=== PATIENT | male | born 1955 | race Caucasian/White ===

== ENCOUNTER 2016-06-22 14:43 | Observation (INO) ==
[2016-06-22] MEDS ORDERED: Ipratropium/Albuterol Neb 3 ML IH ONE (14:57)
[2016-06-22 15:13] LABS: Basophils % 0.3 %; Eosinophils % 0.5 %; Hematocrit 26.4 % (37.5-50.1); Hemoglobin 7.8 g/dL (12.9-16.9); Immature Platelets 6.1 % (1.1-6.1); Lymphocytes # 0.8 K/mcL (0.6-4.6); Lymphocytes % 13.7 %; Mean Corpuscular HGB Conc 29.5 g/dL (31.6-35.5); Mean Corpuscular Hemoglobin 23.1 pg (28.0-33.3); Mean Corpuscular Volume 78.1 fL (83.0-100.0); Mean Platelet Volume 10.9 fL (9.4-12.4); Monocytes # 1.3 K/mcL (0.0-1.3); Monocytes % 21.8 %; Neutrophils # 3.8 K/mcL (1.6-8.9); Platelet Count 157 K/mcL (140-400); Red Blood Count 3.38 M/mcL (4.19-5.50); Red Cell Distribution Width 16.9 % (11.5-14.5); Segmented Neutrophils % 62.7 %
[2016-06-22 15:23] LABS: Potassium 4.4 mEq/L (3.5-4.5)
[2016-06-22 15:24] LABS: Calcium 9.8 mg/dL (8.6-10.8)
[2016-06-22 15:31] LABS: Platelet Estimate Normal (Normal)
[2016-06-22 15:32] LABS: Anisocytosis 1+ (Not Present); Hypochromasia Present (Not Present); Microcytosis Present (Not Present); Poikilocytosis 1+ (Not Present)
[2016-06-22 15:33] LABS: Polychromasia 1+ (Not Present)
--- NOTE | 2016-06-22 15:39 | Emergency Department Note ---
Disposition Clinical Impression: Short of breath on exertion, Acute kidney injury, Sinus tachycardia Anemia Qualifiers: Anemia type: iron deficiency Iron deficiency anemia type: inadequate dietary iron intake Qualified Code(s): D50.8 - Other iron deficiency anemias Disposition: Admitted As Inpatient Condition: Serious Time of Disposition: 20:00 SOB HPI - General Chief Complaint: ED Shortness of Breath/Dyspnea Stated Complaint: ОЛЕГ Source: patient Limitations: no limitations Nursing Notes Reviewed: Yes Vital Signs Reviewed: Yes - History of Present Illness Patient 61-year-old male who complains of shortness of breath 1 month. When asked what changed today patient states that has gotten worse over the past 3 days. Patient states his shortness of breath worsens with activity. 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 Patient also states that he has a cough that worsens at night when he lays down. Patient reports being around sick people with pneumonia and other upper respiratory infections. Patient denies any cardiac history, he admits to history of hypertension and anemia. Patient states he sees Dr. Jones for his anemia. Patient states that they have not found a cause for his anemia. Patient reports no active blood loss through GI. Patient states he saw his primary care physician today stated that she was worried for possible PE during her exam of him. She recommended him come to the ED for chest x-ray per the patient. - Related Data Home Medications Medication Instructions Recorded Confirmed Lisinopril [Zestril] 10 mg PO DAILY 09/02/15 06/22/16 Paroxetine HCl 20 mg PO DAILY 09/02/15 06/22/16 Allergies Allergy/AdvReac Type Severity Reaction Status Date / Time No Known Allergies Allergy Verified 09/02/15 08:55 Review of Systems: Patient admits to cough, lightheadedness, nausea, shortness of breath, dyspnea on exertion and headache as well as fatigue. Patient denies fever, chills, facial pain or sinus pressure, throat pain, chest pain, heart palpitations, abdominal pain, diarrhea, numbness and tingling in extremities. All systems ED: reviewed and negative except as stated. Past Medical History - Past Medical History Attestation: Yes The following information was validated with the patient. Medical history: Reports: hypertension Psychiatric history: Reports: depression - Social History Smoking Status: Never smoker Smokeless Tobacco Status: No Alcohol use: Reports: occasionally Drug use: Reports: none Physical Exam Vital Signs Temperature 97.9 F 06/22/16 14:45 Pulse Rate 119 06/22/16 14:45 Respiratory Rate 22 06/22/16 14:45 Blood Pressure 105/66 06/22/16 14:45 O2 Sat by Pulse Oximetry 98 06/22/16 14:45 Temperature 97.9 F 06/22/16 14:45 Pulse Rate 102 06/22/16 15:35 Respiratory Rate 16 06/22/16 15:35 Blood Pressure 102/76 06/22/16 15:35 O2 Sat by Pulse Oximetry 98 06/22/16 15:35 Oxygen Delivery Oxygen Delivery Room Air -General Appearance: Patient is a 61-year-old male who is alert and oriented 3 and in no acute distress. Patient appears to have to catch his breath shortly after 5 or 6 words with a slight gasp for air. - Head Head exam: atraumatic, normocephalic, normal inspection - Eye Eye exam: Present: normal appearance, PERRL, EOMI, negative for scleral icterus negative for conjunctival pallor - ENT ENT exam: normal exam, normal oropharynx, mucous membranes moist - Neck Neck exam: Present: normal inspection, full ROM, trachea midline, negative JVD - Chest Chest inspection: Present: Patient has bilateral equal rise and fall of chest wall. Non-tender to palpation. - Respiratory Respiratory exam: Clear to auscultation bilaterally without wheezes rales or rhonchi Cardiovascular Cardiovascular exam: Present: Irregular rate, EKG shows sinus tachycardia, normal rhythm, normal heart sounds, without murmurs rubs or gallops. - Abdominal Exam Abdominal exam: Present: soft, nondistended, Non-Tender light and deep palpation in all quadrants. Bowel sounds normoactive throughout all 4 quadrants. Negative for hyper or hyperresonance. - Extremities Exam Extremities exam: Present: normal inspection, full ROM, patient has negative calf tenderness, and pedal pulses equal bilateral patient has normal refill at 2 seconds - Back Exam Back exam: Present: normal inspection, full ROM. negative flank pain negative lower back tenderness - Psychiatric Psychiatric exam: Present: normal affect, normal mood - Skin Skin exam: Present: warm, dry, intact, normal color - General Limitations: no limitations General appearance: alert, in no apparent distress Course Course Narrative: Patient was seen and examined. CBC, BMP, chest x-ray, troponin ordered d-dimer ordered. - Reevaluation(s) Reevaluation #1: Patient's labs returned showing anemia at 7.8, patient was informed of this, as well as elevated d-dimer. Patient's requires VQ scan. Patient agrees and understands treatment plan. Also received DuoNeb and says that it did not help his shortness of breath. he is still tachycardic at 102 bpm Time: 17:00 Reevaluation #2: Patient still awaiting retaken a V/Q scan Time: 17:45 Reevaluation #3: Patient has gotten VQ scan accomplished and currently waiting results Time: 18:30 - Consultations Consultation #1: Dr. Sagastume has accepted for admission Time: 19:53 Vital Signs Temperature 97.9 F 06/22/16 14:45 Pulse Rate 119 06/22/16 14:45 Respiratory Rate 22 06/22/16 14:45 Blood Pressure 105/66 06/22/16 14:45 O2 Sat by Pulse Oximetry 98 06/22/16 14:45 Temperature 98.8 F 06/22/16 22:17 Pulse Rate 84 06/22/16 22:17 Respiratory Rate 17 06/22/16 22:17 Blood Pressure 120/74 06/22/16 22:17 O2 Sat by Pulse Oximetry 98 06/22/16 22:06 Oxygen Delivery Oxygen Delivery Room Air Shortness of Breath/Dyspnea - MDM Narrative Medical decision making narrative: Patient condition concerning for possible PE congestive heart failure, cardiomyopathy secondary undiagnosed etiology, pneumonia, anemia. D-dimer was ordered and was elevated at 694 prompting to proceed with inflammation perfusion scan which was negative for PE. Labs show a microcytic anemia hemoglobin 7.8, as well as hyponatremia with a potassium level of 135, patient is a BUN of 38, and a creatinine level of 2.37 which is positive for acute kidney injury as well. Patient received 2 L of fluid which helped the patient' s tachycardia and volume status. Patient is currently has a pulse rate of 92. Discussed the patient possibility of admission for transfusion, investigation into acute kidney injury as well. Spoke to Dr. Sagastume who asked to begin treatment for anemia here in the ED. 2 units PRBCs and been ordered as well as a UA. Patient has been accepted for admission. Of note patient states that he usually drinks 5 beers a night. Patient states he recently cut back to 2 beers a night since 3 nights ago. Patient does state that he has been drinking all his life. Patient states that he does not feel that he needs to drink all the time but it helps calm him down at night to sleep. He says like states that prior to cutting back he did increased his amount of drinking but could not quantify. - Medical Records Medical records reviewed: Yes I reviewed the patient's medical records. - Lab Data Lab results reviewed: Yes I reviewed the patient's lab results. Lab results narrative: Short CBC 06/22/16 Range/Units 15:02 WBC 6.1 (4.3-11.1) K/mcL Hgb 7.8 L (12.9-16.9) g/dL Hct 26.4 L (37.5-50.1) % Plt Count 157 (140-400) K/mcL Neutrophils # 3.8 (1.6-8.9) K/mcL BMP 06/22/16 Range/Units 15:02 Sodium 135 L (136-145) mEq/L Potassium 4.4 (3.5-4.5) mEq/L Chloride 102 (98-109) mEq/L Carbon Dioxide 20 (19-29) mEq/L BUN 38 H (8-26) mg/dL Creatinine 2.37 H (0.72-1.25) mg/dL Glucose 116 H (70-99) mg/dL Calcium 9.8 (8.6-10.8) mg/dL Cardiac Enzymes 06/22/16 06/22/16 Range/Units 22:20 15:02 Troponin I 0.01 0.02 (0-0.03) ng/mL Result diagrams: 06/22/16 15:02 06/22/16 15:02 Lab Results 06/22/16 06/22/16 06/22/16 Range/Units 15:02 15:02 15:02 WBC 6.1 (4.3-11.1) K/mcL RBC 3.38 L (4.19-5.50) M/mcL Hgb 7.8 L (12.9-16.9) g/dL Hct 26.4 L (37.5-50.1) % MCV 78.1 L (83.0-100.0) fL MCH 23.1 L (28.0-33.3) pg MCHC 29.5 L (31.6-35.5) g/dL RDW 16.9 H (11.5-14.5) % Plt Count 157 (140-400) K/mcL MPV 10.9 (9.4-12.4) fL Immature Gran % 1.0 (0-4) % Seg Neutrophils % 62.7 % Lymphocytes % 13.7 % Monocytes % 21.8 % Eosinophils % 0.5 % Basophils % 0.3 % Neutrophils # 3.8 (1.6-8.9) K/mcL Lymphocytes # 0.8 (0.6-4.6) K/mcL Monocytes # 1.3 (0.0-1.3) K/mcL Eosinophils # 0.0 (0.0-0.6) K/mcL Basophils # 0.0 (0.0-0.2) K/mcL Platelet Estimate Normal (Normal) Immature Plt Fraction 6.1 (1.1-6.1) % Polychromasia 1+ A (Not Present) Hypochromasia Present A (Not Present) Poikilocytosis 1+ A (Not Present) Anisocytosis 1+ A (Not Present) Microcytosis Present A (Not Present) D-Dimer 694 H (0-500) ng/mLFEU Sodium 135 L (136-145) mEq/L Potassium 4.4 (3.5-4.5) mEq/L Chloride 102 (98-109) mEq/L Carbon Dioxide 20 (19-29) mEq/L BUN 38 H (8-26) mg/dL Creatinine 2.37 H (0.72-1.25) mg/dL Est GFR ( Amer) 34 L (> 60) Est GFR (Non-Af Amer) 28 L (> 60) BUN/Creatinine Ratio 16 (6-26) Glucose 116 H (70-99) mg/dL Calculated Osmolality 290 (280-300) Calcium 9.8 (8.6-10.8) mg/dL Iron 21 L (65-175) mcg/dL % Saturation 4 L (20-55) % Transferrin 363 (174-364) mg/dL Ferritin 131 (22-275) ng/ml Troponin I (0-0.03) ng/mL Vitamin B12 (213-816) pg/mL Folate (7.0-31.4) ng/mL Blood Type Antibody Screen Crossmatch 06/22/16 06/22/16 06/22/16 Range/Units 15:02 15:02 17:37 WBC (4.3-11.1) K/mcL RBC (4.19-5.50) M/mcL Hgb (12.9-16.9) g/dL Hct (37.5-50.1) % MCV (83.0-100.0) fL MCH (28.0-33.3) pg MCHC (31.6-35.5) g/dL RDW (11.5-14.5) % Plt Count (140-400) K/mcL MPV (9.4-12.4) fL Immature Gran % (0-4) % Seg Neutrophils % % Lymphocytes % % Monocytes % % Eosinophils % % Basophils % % Neutrophils # (1.6-8.9) K/mcL Lymphocytes # (0.6-4.6) K/mcL Monocytes # (0.0-1.3) K/mcL Eosinophils # (0.0-0.6) K/mcL Basophils # (0.0-0.2) K/mcL Platelet Estimate (Normal) Immature Plt Fraction (1.1-6.1) % Polychromasia (Not Present) Hypochromasia (Not Present) Poikilocytosis (Not Present) Anisocytosis (Not Present) Microcytosis (Not Present) D-Dimer (0-500) ng/mLFEU Sodium (136-145) mEq/L Potassium (3.5-4.5) mEq/L Chloride (98-109) mEq/L Carbon Dioxide (19-29) mEq/L BUN (8-26) mg/dL Creatinine (0.72-1.25) mg/dL Est GFR ( Amer) (> 60) Est GFR (Non-Af Amer) (> 60) BUN/Creatinine Ratio (6-26) Glucose (70-99) mg/dL Calculated Osmolality (280-300) Calcium (8.6-10.8) mg/dL Iron (65-175) mcg/dL % Saturation (20-55) % Transferrin (174-364) mg/dL Ferritin (22-275) ng/ml Troponin I 0.02 (0-0.03) ng/mL Vitamin B12 1007 H (213-816) pg/mL Folate 14.3 (7.0-31.4) ng/mL Blood Type A POSITIVE Antibody Screen NEGATIVE Crossmatch See Detail - Radiology Data Radiology results reviewed: Yes I reviewed the patient's radiology results. Chest X-Ray 06/22/16 14:54 IMPRESSION: No acute process. D/ / Hua Wiggins MD / Hua Wiggins MD Interpreting Provider: Hua Wiggins MD Pulmonary Perfusion Imaging 06/22/16 17:00 IMPRESSION: Normal study. No pulmonary embolus is suspected. D/ / Leonard Ferro MD / Leonard Ferro MD Interpreting Provider: Leonard Ferro MD - EKG Data EKG attestation: Yes I reviewed and interpreted this EKG. EKG results narrative: EKG taken for June 2016 at 1503 hrs. shows a sinus tachycardia no acute ST elevations or depressions in leads. Attestation Statement - Attestation Attestation: I examined this patient and my medical decision-making was reviewed with the REAL ESTATE FIRM MANAGER/PA/Advanced Practice Nurse/Resident Physician. I agree with the documented findings, disposition and treatment plan as described except to the extent set forth below. Patient to the emergency Department chief complaint shortness of breath. Is not progressing over a few weeks. He describes it as dyspnea on exertion. He thought he had a flu that he cannot get rid of. He has had a dry cough. No fever. He went to the urgent care today to get an antibiotic and states they were concerned for blood clots and sent him here. Denies any leg or pain swelling. He denies any chest pain. He has no history of blood clots. On exam he is awake and alert in no distress. Heart mildly tachycardic in the low 100s. Lungs are clear but diminished in the bases posteriorly. Plan. Cardiac work up and reevaluate.
[2016-06-22] MEDS ORDERED: 0.9 % Sodium Chloride 1,000 ML IVC ONE (17:20)
--- NOTE | 2016-06-22 20:40 | Internal Med History&Physical ---
<Candido Rodriguez - Last Filed: 06/22/16 21:46> Date of Encounter: 06/22/16 Time of Encounter: 08:10 Assessment and Plan (1) Anemia Current visit: Yes Status: Acute Known history of iron deficiency anemia. Possible secondary cause of poor oral intake and alcohol abuse. Iron studies ordered as well as folate and B12 levels. Patient ordered to have 2 units packed RBCs transfused with recheck of CBC in the morning. Qualifiers: Anemia type: iron deficiency Iron deficiency anemia type: inadequate dietary iron intake Qualified Code(s): D50.8 - Other iron deficiency anemias (2) Acute kidney injury Current visit: Yes Status: Acute Secondary to medication induced vs. poor oral intake. Given 2L fluids in the ED. Will hold home medication of Lisinopril at this time. (3) Alcohol dependence Current visit: Yes Status: Acute Patient drinks 5 beers per night until three nights ago, when he cut back to 2 beers per night. CIWA protocol with daily thiamine and folate supplementation Alcohol cessation provided. Qualifiers: Substance use status: uncomplicated Qualified Code(s): F10.20 - Alcohol dependence, uncomplicated (4) Short of breath on exertion Current visit: Yes Status: Acute Secondary to anemia. Troponin was 0.02, will trend troponins. D-Dimer was elevated at 694 and VQ scan was ordered, which was negative for PE. Patient saturates 98% on room air at this time. (5) Essential hypertension Current visit: Yes Status: Acute Hold lisinopril. Control with norvasc 5mg and metoprolol PRN (6) DVT prophylaxis Current visit: Yes Status: Acute SCDs (7) GERD (gastroesophageal reflux disease) Current visit: Yes Status: Acute Cough worsening with laying down. Trial of omeprazole for assessment of improvement of symptoms. Qualifiers: Esophagitis presence: esophagitis presence not specified Qualified Code(s) : K21.9 - Gastro-esophageal reflux disease without esophagitis (8) Depression Current visit: Yes Status: Chronic Continue home medication. Qualifiers: Depression Type: unspecified Qualified Code(s): F32.9 - Major depressive disorder, single episode, unspecified Internal Medicine - H&P: HPI Chief complaint: shortness of breath Admitted From: Emergency Dept Plans for Post Hospital Care: Home History of present illness: Mr. Blount is a 61 year old male with PMH significant of hypertension, anemia, and depression presented to the emergency department for shortness of breath. He states that he has been feeling short of breath for the past month, but it has been worsening for the past 3 days. He states he has a nonproductive cough that is worse with laying down. 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 The patient's history of anemia required a hospitalization 2 1/2 years ago in which he was given 2 units of packed red blood cells as well as a IV iron infusion. At that time he had an EGD and a colonoscopy, which were both negative for any signs of G.I. bleeding. He began to follow with Dr. Anderson for his anemia and was taking 375 mg of iron twice a day. He recently stopped the supplemental iron from instructions by Dr. Anderson in February. Since then he has been feeling slightly more symptomatic due to his anemia and within the last month he is began taking one iron tablet per day again. The patient states that he has a history of alcoholism on the father side of his family. He states that he typically has been drinking 5 beers per day, and does not have much of an appetite after that so he has not been eating much food. Since ' Day he decided that he was going to cut back on his drinking and has only been consuming two beers per day. He denies having any blood or darkening of his stools prior to restarting his iron supplementation. He denies any blood in his urine. He denies hemoptysis. Past Med Surg Social Fam HX - Past Medical History Medical history: hypertension, other (anemia) Psychiatric history: depression - Past Surgical History Surgical History: non-contributory (tosillectomy and sinus surgery) - Social History Smoking Status: Never smoker Smokeless Tobacco Status: No Alcohol use: occasionally Drug use: none - Family History Father Living Status: Age at : 73 Hx Family Cardiac Disorders: Yes Hx Family Respiratory Disorders: Yes (COPD) Internal Medicine - H&P: Meds RX: Lisinopril [Zestril] 10 mg PO DAILY 09/02/15 [History] RX: Paroxetine HCl 20 mg PO DAILY 09/02/15 [History] Allergies No Known Allergies Allergy (Verified 09/02/15 08:55) All Systems PM: A 10-system review of systems was performed and is negative for pertinent findings except as documented above in the HPI. - Constitutional Constitutional: no chills, no fever(s), no night sweats - EENT Eyes: no change in vision, no discharge, no pain, no photophobia Ears: no ear discharge, no ear pain, no tinnitus Nose, mouth and throat: no dysphagia, no nasal discharge, no neck pain, no sore throat - Cardiovascular Cardiovascular ROS IM: dyspnea, lightheadedness, no chest pain, no diaphoresis, no palpitations, no syncope - Respiratory Respiratory: cough, dyspnea, no wheezing, no excessive phlegm production - Gastrointestinal Gastrointestinal: no abdominal pain, no diarrhea, no hematemesis, no hematochezia, no melena, no nausea, no vomiting - Musculoskeletal Musculoskeletal ROS IM: no numbness, no tingling - Integumentary Integumentary IM: no rash, no unusual bruising - Neurological Neurological ROS: headache(s), no confusion, no convulsions, no focal weakness, no numbness, no tingling, no tremor(s) - Hematologic/Lymphatic Hematologic/Lymphatic: no easy bruising - Constitutional Vitals: Temp Pulse Resp BP Pulse Ox 97.9 F 102 18 121/80 98 06/22/16 14:45 06/22/16 18:41 06/22/16 20:22 06/22/16 20:22 06/22/16 18:41 General appearance: Present: A&O X 3, no acute distress - Head Head exam: Present: atraumatic, normocephalic - Eye Eye exam: Present: EOMI, PERRL, conjuntiva pink, sclera anicteric Pupils: Present: PERRL Additional comments: No conjunctival pallor - Neck Neck exam general surgery: Present: supple, trachea midline. Absent: lymphadenopathy - Respiratory Respiratory exam: Present: CTAB. Absent: accessory muscle use, rales, rhonchi, wheezes - Cardiovascular Cardiovascular exam: Present: RRR, +S1, +S2. Absent: diastolic murmur, gallop, rubs, systolic murmur - GI/Abdominal GI/Abdominal exam: Present: normal bowel sounds, soft, no peritoneal signs. Absent: distended, tenderness - Extremities Exam Extremities exam: Present: warm, radial pulses palpable and symetrical. Absent : calf tenderness, cyanotic, pedal edema - Neurological Exam Neurological exam: Present: CN II-XII intact, oriented X3, no focal deficits. Absent: pronater drift, facial droop, speech deficit - Skin Skin exam: Present: dry, intact Internal Med - H&P Results - Labs CBC & Chem 7: 06/22/16 15:02 06/22/16 15:02 Labs: Short CBC 06/22/16 Range/Units 15:02 WBC 6.1 (4.3-11.1) K/mcL Hgb 7.8 L (12.9-16.9) g/dL Hct 26.4 L (37.5-50.1) % Plt Count 157 (140-400) K/mcL Neutrophils # 3.8 (1.6-8.9) K/mcL BMP 06/22/16 15:02 Sodium 135 L Potassium 4.4 Chloride 102 Carbon Dioxide 20 BUN 38 H Creatinine 2.37 H Glucose 116 H Calcium 9.8 Cardiac Enzymes 06/22/16 Range/Units 15:02 Troponin I 0.02 (0-0.03) ng/mL - Impressions ITS Impressions Chest X-Ray 06/22/16 14:54 IMPRESSION: No acute process. D/ / Hua Wiggins MD / Hua Wiggins MD Interpreting Provider: Hua Wiggins MD Pulmonary Perfusion Imaging 06/22/16 17:00 IMPRESSION: Normal study. No pulmonary embolus is suspected. D/ / Leonard Ferro MD / Leonard Ferro MD Interpreting Provider: Leonard Ferro MD - Attending Attestation I examined this patient and my medical decision-making was reviewed with the DIRECTOR DATA MANAGEMENT/PA/Advanced Practice Nurse/Resident Physician. I agree with the documented findings, disposition and treatment plan as described except to the extent set forth below. <Nini Sagastume - Last Filed: 06/22/16 23:31> Date of Encounter: 06/22/16 Internal Medicine - H&P: HPI History of present illness: Mr. Blount is a 61 year old male All Systems PM: A 10-system review of systems was performed and is negative for pertinent findings except as documented above in the HPI. - Constitutional Vitals: Temp Pulse Resp BP Pulse Ox 98.8 F 84 17 120/74 98 06/22/16 22:17 06/22/16 22:17 06/22/16 22:17 06/22/16 22:17 06/22/16 22:06 Internal Med - H&P Results - Labs CBC & Chem 7: 06/22/16 15:02 06/22/16 15:02 Labs: Cardiac Enzymes 06/22/16 Range/Units 22:20 Troponin I 0.01 (0-0.03) ng/mL - Attending Attestation Patient independently seen and examined at bedside. States he started getting exertional dyspnea since he has been off his iron supplementation, which worsened today prompting his visit to the [place] receiving hospital care along with peristent upper respiratory tract infection for the last few days. At this time patient is resting comfortably in bed. -Patient to be transfused two units PRBCs -Will initiate iron supplementation -close monitoring of the renal function -if clinically stable in am, likely discharge with follow up with PCP and vehicle calibration engineer. -Extensive alcohol cessation counseling was provided. Patient demonstrates understanding and is willing to quit at this time.
[2016-06-22] MEDS ORDERED: Naloxone 0.4 MG/ML INJ IVP PRN (21:09)
[2016-06-22] MEDS ORDERED: *HR* Metoprolol 5 MG/5 ML VIAL IVP PRN ×2 (21:34→22:25)
[2016-06-22] MEDS ORDERED: 0.9 % Sodium Chloride 250 ML ONE (22:04)
[2016-06-22 22:25] LABS: Folate 14.3 ng/mL (7.0-31.4)
[2016-06-23] MEDS ORDERED: 0.9 % Sodium Chloride 250 ML ONE (01:04)
[2016-06-23 05:13] LABS: Basophils % 0.5 %; Eosinophils # 0.1 K/mcL (0.0-0.6); Eosinophils % 1.1 %; Hematocrit 27.6 % (37.5-50.1); Hemoglobin 8.5 g/dL (12.9-16.9); Immature Granulocytes % 1.1 % (0-4); Lymphocytes # 1.4 K/mcL (0.6-4.6); Mean Corpuscular HGB Conc 30.8 g/dL (31.6-35.5); Mean Corpuscular Hemoglobin 24.8 pg (28.0-33.3); Mean Corpuscular Volume 80.5 fL (83.0-100.0); Mean Platelet Volume 11.4 fL (9.4-12.4); Monocytes # 1.5 K/mcL (0.0-1.3); Monocytes % 24.4 %; Platelet Count 133 K/mcL (140-400); Red Blood Count 3.43 M/mcL (4.19-5.50); Red Cell Distribution Width 17.1 % (11.5-14.5); Segmented Neutrophils % 50.9 %
[2016-06-23 05:28] LABS: Neutrophils # 3.2 K/mcL (1.6-8.9)
[2016-06-23 05:46] LABS: Anisocytosis 1+ (Not Present); Platelet Estimate Normal (Normal)
[2016-06-23] MEDS: amLODIPine 5 MG TABLET PO SCH (07:57)
[2016-06-23] MEDS: Folic Acid 1 MG TABLET PO SCH (07:57)
[2016-06-23] MEDS: Thiamine (B-1) 100 MG TABLET PO SCH (07:57)
[2016-06-23] MEDS ORDERED: Ferumoxytol 510 MG in 0.9 % Sodium Chloride 100 ML IVPB ONE (08:04)
[2016-06-23] MEDS ORDERED: Ondansetron 4 MG/2 ML VIAL IVP PRN (08:05)
[2016-06-23] MEDS ORDERED: *HR* OxyCODONE Immed Rel 5 MG TABLET PO PRN (08:05)
[2016-06-23 08:32] LABS: Hematocrit 29.4 % (37.5-50.1); Hemoglobin 8.9 g/dL (12.9-16.9)
[2016-06-23] MEDS: 0.9 % Sodium Chloride 1,000 ML IVC SCH (08:45)
[2016-06-23] MEDS ORDERED: Iron Polysaccharide Complex 150 MG CAPSULE PO SCH (09:00)
--- NOTE | 2016-06-23 10:19 | Electrocardiograph Report ---
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
--- NOTE | 2016-06-23 13:10 | Internal Med Progress Note ---
Date of Encounter: 06/23/16 Time of Encounter: 10:30 - Assessment and plan (1) Hx of iron deficiency anemia Current Visit: No Status: Chronic Assessment and plan: Status post transfusion of 2 units of packed red blood cells with modest increase. Patient's symptoms of lightheadedness and dizziness have resolved and his shortness of breath with exertion is improving. Patient was on iron supplementation and then he was taken off iron supplementation by his sales warehouse driver Dr. Conklin. Levels rechecked and are again low, IV feraheme and he will be instructed to continue iron supplementation upon discharge. B12 elevated, folate normal. (2) Anemia, iron deficiency Current Visit: No Status: Acute Qualifiers: Iron deficiency anemia type: unspecified iron deficiency Qualified Code(s) : D50.9 - Iron deficiency anemia, unspecified (3) Acute renal failure Current Visit: Yes Status: Acute Assessment and plan: Likely secondary to severe anemia. Status post transfusions, will add very gentle IV fluid rehydration. No history of chronic kidney disease, creatinine and GFR are 2.37 and 28 respectively (4) Alcohol dependence Current Visit: Yes Status: Chronic Assessment and plan: Patient stating he used to drink 5-6 beers every night. Over the past week or so he has decreased to 2 beers per night. He denies ever having a withdrawal seizure. He states sometimes when he wakes up in the morning he does not feel well and sometimes vomits but denies any blacking out or seizure-like activity. Continue CIWA protocol though DTs unlikely. Qualifiers: Substance use status: uncomplicated Qualified Code(s): F10.20 - Alcohol dependence, uncomplicated (5) DVT prophylaxis Current Visit: Yes Status: Acute Assessment and plan: SCD's. Pharmacologic prophylaxis contraindicated secondary to anemia requiring transfusion. (6) Essential hypertension Current Visit: Yes Status: Chronic Assessment and plan: Controlled. We will continue to trend and adjust medications as indicated. (7) GERD (gastroesophageal reflux disease) Current Visit: Yes Status: Chronic Assessment and plan: Denies current symptoms, continue PPI Qualifiers: Esophagitis presence: esophagitis presence not specified Qualified Code(s) : K21.9 - Gastro-esophageal reflux disease without esophagitis (8) Depression Current Visit: Yes Status: Chronic Assessment and plan: Denies suicidal ideation. Mood and affect appropriate during my interaction with Qualifiers: Depression Type: unspecified Qualified Code(s): F32.9 - Major depressive disorder, single episode, unspecified (9) ARROYO (dyspnea on exertion) Current Visit: No Status: Acute Assessment and plan: Improving. Likely secondary to anemia. We will continue to trend. Patient had an echocardiogram in July 2015 that was normal. Ejection fraction is 60 -65%. Echocardiogram from 07/31/15 impressions: LVEF 60-65%. Mild concentric left ventricular hypertrophy. Mild left ventricular diastolic dysfunction. Normal right ventricular structure and function. No evidence of pulmonary hypertension. No obvious significant valvular dysfunction. - Subjective Interval history: Patient seen and examined. On examination, patient resting supine in bed. Patient denies dizziness or lightheadedness at this time and he states his shortness of breath with ambulation is improving. He is endorsing a normal appetite. He denies pain at this time. - Constitutional Vitals: Temp Pulse Resp BP Pulse Ox 98.0 F 95 17 113/81 96 06/23/16 10:59 06/23/16 10:59 06/23/16 10:59 06/23/16 10:59 06/23/16 10:59 General appearance: Present: A&O X 3, pleasant, no acute distress, answers questions appropriately - Head Head exam: Present: atraumatic, normocephalic - Eye Eye exam: Present: PERRL, conjuntiva pink, sclera anicteric Pupils: Present: PERRL - Neck Neck exam general surgery: Present: supple, trachea midline. Absent: lymphadenopathy - Respiratory Respiratory exam: Present: CTAB. Absent: accessory muscle use, rales, respiratory distress, rhonchi, wheezes - Cardiovascular Cardiovascular exam: Present: RRR, +S1, +S2. Absent: diastolic murmur, gallop, rubs, systolic murmur - GI/Abdominal GI/Abdominal exam: Present: distended, normal bowel sounds, soft, no peritoneal signs. Absent: tenderness - Extremities Exam Extremities exam: Present: warm, radial pulses palpable and symetrical. Absent : calf tenderness, cyanotic, pedal edema - Neurological Exam Neurological exam: Present: alert, CN II-XII intact, normal gait, oriented X3, no focal deficits, strengths equal and symetr throughout. Absent: pronater drift, facial droop, speech deficit - Skin Skin exam: Present: dry, intact, normal color, warm Internal Medicine: Result - Labs CBC & Chem 7: 06/23/16 08:19 06/22/16 15:02 Labs: Short CBC 06/23/16 06/23/16 Range/Units 04:26 08:19 WBC 6.2 (4.3-11.1) K/mcL Hgb 8.5 L 8.9 L (12.9-16.9) g/dL Hct 27.6 L 29.4 L (37.5-50.1) % Plt Count 133 L (140-400) K/mcL Neutrophils # 3.2 (1.6-8.9) K/mcL Cardiac Enzymes 06/22/16 06/23/16 Range/Units 22:20 04:26 Troponin I 0.01 0.01 (0-0.03) ng/mL - ABG Interpretation ABG results: PT/INR, D-dimer D-Dimer 694 ng/mLFEU (0-500) H 06/22/16 15:02 Consult Discharge Plan - Plan Referrals: Maximiliano Garrison MD [Primary Care Provider] - 07/04/16 2:15 pm
[2016-06-23 14:09] LABS: Hematocrit 29.1 % (37.5-50.1); Hemoglobin 8.8 g/dL (12.9-16.9)
[2016-06-23 15:31] LABS: Bilirubin,Urine Negative (Negative); Blood,Urine Negative (Negative); Clarity,Urine Clear (Clear); Color,Urine Yellow (Yellow); Glucose,Urine (UA) Normal (Normal); Ketones,Urine Negative (Negative); Leukocyte Esterase,Urine Negative (Negative); Nitrite,Urine Negative (Negative); Protein,Urine Negative (Neg-Trace); Specific Gravity,Urine 1.015 (1.010-1.025); Urobilinogen,Urine Normal (Normal)
[2016-06-23 21:11] LABS: Hematocrit 29.2 % (37.5-50.1); Hemoglobin 8.8 g/dL (12.9-16.9)
[2016-06-24 05:22] LABS: Basophils % 0.3 %; Eosinophils # 0.1 K/mcL (0.0-0.6); Eosinophils % 1.7 %; Hematocrit 28.9 % (37.5-50.1); Hemoglobin 8.8 g/dL (12.9-16.9); Immature Granulocytes % 0.9 % (0-4); Lymphocytes # 1.3 K/mcL (0.6-4.6); Lymphocytes % 20.5 %; Mean Corpuscular HGB Conc 30.4 g/dL (31.6-35.5); Mean Corpuscular Hemoglobin 24.6 pg (28.0-33.3); Mean Platelet Volume 11.3 fL (9.4-12.4); Monocytes # 1.2 K/mcL (0.0-1.3); Monocytes % 18.8 %; Platelet Count 123 K/mcL (140-400); Red Blood Count 3.57 M/mcL (4.19-5.50); Red Cell Distribution Width 16.9 % (11.5-14.5); Segmented Neutrophils % 57.8 %
[2016-06-24 05:50] LABS: BUN/Creatinine Ratio 21 (6-26); Carbon Dioxide 21 mEq/L (19-29); Chloride 106 mEq/L (98-109); Glucose 91 mg/dL (70-99); Osmolality,Calculated 281 (280-300); Potassium 4.5 mEq/L (3.5-4.5); Sodium 134 mEq/L (136-145); eGFR For African Americans > 60 (> 60); eGFR For Non-African Americans > 60 (> 60)
[2016-06-24] MEDS: 0.9 % Sodium Chloride 1,000 ML IVC SCH (05:56)
[2016-06-24 06:01] LABS: Neutrophils # 3.8 K/mcL (1.6-8.9)
[2016-06-24 06:02] LABS: Blood Urea Nitrogen 23 mg/dL (8-26)
[2016-06-24] MEDS: Thiamine (B-1) 100 MG TABLET PO SCH (07:25)
[2016-06-24] MEDS: Folic Acid 1 MG TABLET PO SCH (07:25)
[2016-06-24] MEDS: amLODIPine 5 MG TABLET PO SCH (07:26)
[2016-06-24 07:57] LABS: Platelet Estimate Slight Decrease (Normal)
[2016-06-24 11:12] VITALS: BP 132/81
--- NOTE | 2016-06-24 11:58 | Discharge Summary ---
Date of Encounter: 06/24/16 Time of Encounter: 10:30 - Discharge Diagnosis (1) Hx of iron deficiency anemia Priority: Secondary Status: Chronic Comments: Patient remained hemodynamically stable after he was transfused with 2 units of packed red blood cells. He was given an IV dose of Feraheme all admitted and will be sent home on by mouth iron supplementation. 06/23/16 Status post transfusion of 2 units of packed red blood cells with modest increase. Patient's symptoms of lightheadedness and dizziness have resolved and his shortness of breath with exertion is improving. Patient was on iron supplementation and then he was taken off iron supplementation by his lay ups assembler Dr. Conklin. Levels rechecked and are again low, IV feraheme and he will be instructed to continue iron supplementation upon discharge. B12 elevated, folate normal. (2) Anemia, iron deficiency Priority: Primary Status: Acute Qualifiers: Iron deficiency anemia type: unspecified iron deficiency Qualified Code(s) : D50.9 - Iron deficiency anemia, unspecified (3) Acute renal failure Priority: Primary Status: Resolved (4) Alcohol dependence Priority: Secondary Status: Chronic Qualifiers: Substance use status: uncomplicated Qualified Code(s): F10.20 - Alcohol dependence, uncomplicated (5) DVT prophylaxis Priority: Primary Status: Acute Comments: SCD's. Pharmacologic prophylaxis contraindicated secondary to anemia requiring transfusion. (6) Essential hypertension Priority: Secondary Status: Chronic Comments: Controlled. Recommend continued follow-up outpatient. (7) GERD (gastroesophageal reflux disease) Priority: Secondary Status: Chronic Comments: Denied current symptoms. We will resume omeprazole upon disposition given his daily alcohol intake Qualifiers: Esophagitis presence: esophagitis presence not specified Qualified Code(s) : K21.9 - Gastro-esophageal reflux disease without esophagitis (8) Depression Priority: Secondary Status: Chronic Comments: Mood and affect appropriate during this admission. Patient denied suicidal ideation Qualifiers: Depression Type: unspecified Qualified Code(s): F32.9 - Major depressive disorder, single episode, unspecified (9) ARROYO (dyspnea on exertion) Priority: Primary Status: Resolved - Discharge Medications Prescriptions: Amlodipine [Norvasc] 5 mg PO DAILY #30 tablet Ferrous Gluconate 324 mg PO TIDWM #90 tablet Omeprazole [PriLOSEC] 20 mg PO DAILY@0630 #20 capsule. Home Medications: Paroxetine HCl 20 mg PO DAILY 09/02/15 [History] Amlodipine [Norvasc] 5 mg PO DAILY #30 tablet 06/24/16 [Rx] Ferrous Gluconate 324 mg PO TIDWM #90 tablet 06/24/16 [Rx] Omeprazole [PriLOSEC] 20 mg PO DAILY@0630 #20 capsule. 06/24/16 [Rx] Allergies/Adverse Reactions: Allergies No Known Allergies Allergy (Verified 09/02/15 08:55) Date of admission: 06/22/16 20:03 Primary care physician: Maximiliano Garrison MD Discharging clinician: Princess Berrios Anticipated date of discharge: 06/24/16 - Patient Status Disposition: Home, Self-Care Condition: Good Functional capacity at discharge: independent ambulation Overall status at discharge: patient is back to baseline - Discharge Instructions Follow Up With: Maximiliano Garrison MD [Primary Care Provider] - 07/04/16 2:15 pm Additional Instructions: Follow-up with primary care provider as scheduled - Diet and Activity Activity: increase activity as tolerated Diet: low salt diet, other (high iron diet) Hospital course: Mr. Bluont is a 61 year old male with past medical history of hypertension, anemia, depression, daily alcohol abuse. Patient presented to the emergency room for chief complaint shortness of breath for the past month that had worsened over the 3 days prior to presentation. Patient also endorsed a nonproductive cough that is worse while he was lying down. 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 Patient stating his anemia required hospitalization approximately 2-1/2 years ago where he was given 2 units of packed red blood cells as well as IV iron infusion and at that time he had an EGD and a colonoscopy that were both unremarkable. He was started on iron supplementation but was recently stopped on the iron supplementation per Dr. Conklin in February 2016. Patient stating over the past month he started to take 1 iron supplement again daily. Patient stating he typically drinks 5-6 beers per day but has cut down to 2 beers per day in the recent past. Anemia noted in the emergency department. Chest x-ray negative. Elevated d-dimer noted so a VQ scan was performed which ruled out a PE. Patient was admitted to the hospitalist service for further evaluation and management. He was transfused with 2 units of packed red blood cells. Initial hemoglobin 7.8. He was admitted and observed over the course of 3 days. He remained hemodynamically stable and his hemoglobin on day of discharge 8.8. Patient's symptoms also resolved during this admission. On day of discharge, he denied lightheadedness, dizziness, dyspnea on exertion. Patient was also noted to have substantial acute renal failure with initial creatinine and GFR 2.37 and 28 respectively. He was given gentle IV fluids during this admission and his renal function was normal on day of discharge. Further investigation into his anemia revealed elevated B12 levels and normal folate levels. Iron levels were still noted to be low and he was given a dose of IV Feraheme and sent home on by mouth supplementation. Patient stating that his goal is to stop drinking altogether. Regarding his hypertension, he was changed from lisinopril over to amlodipine given his admissions with acute kidney injury and continued alcohol intake. An echocardiogram was also obtained to rule out heart failure and revealed an ejection fraction of 60-65% with mild diastolic dysfunction. Patient was euvolemic on examination throughout this admission. He was discharged home in stable condition with close outpatient follow-up recommended. ITS Impressions Chest X-Ray 06/22/16 14:54 IMPRESSION: No acute process. D/ / Hua Wiggins MD / Hua Wiggins MD Interpreting Provider: Hua Wiggins MD Pulmonary Perfusion Imaging 06/22/16 17:00 IMPRESSION: Normal study. No pulmonary embolus is suspected. D/ / Leonard Ferro MD / Leonard Ferro MD Interpreting Provider: Leonard Ferro MD Echocardiogram from 07/31/15 impressions: LVEF 60-65%. Mild concentric left ventricular hypertrophy. Mild left ventricular diastolic dysfunction. Normal right ventricular structure and function. No evidence of pulmonary hypertension. No obvious significant valvular dysfunction. - Time Spent with Patient Total time spent providing and/or coordinating discharge services: - Constitutional Vitals: Temp Pulse Resp BP Pulse Ox 97.9 F 87 14 132/81 97 06/24/16 11:11 06/24/16 11:11 06/24/16 11:11 06/24/16 11:11 06/24/16 11:11 General appearance: Present: A&O X 3, pleasant, no acute distress, answers questions appropriately - Head Head exam: Present: atraumatic, normocephalic - Eye Eye exam: Present: PERRL, conjuntiva pink, sclera anicteric Pupils: Present: PERRL - Neck Neck exam general surgery: Present: supple, trachea midline. Absent: lymphadenopathy - Respiratory Respiratory exam: Present: CTAB. Absent: accessory muscle use, rales, respiratory distress, rhonchi, wheezes - Cardiovascular Cardiovascular exam: Present: RRR, +S1, +S2. Absent: diastolic murmur, gallop, rubs, systolic murmur - GI/Abdominal GI/Abdominal exam: Present: distended, normal bowel sounds, soft, no peritoneal signs. Absent: tenderness - Extremities Exam Extremities exam: Present: warm, radial pulses palpable and symetrical. Absent : calf tenderness, cyanotic, pedal edema - Neurological Exam Neurological exam: Present: alert, CN II-XII intact, normal gait, oriented X3, no focal deficits, strengths equal and symetr throughout. Absent: pronater drift, facial droop, speech deficit - Skin Skin exam: Present: dry, intact, normal color, warm - VTE Documentation of Mechanical Device: Intermittent pneumatic compression device
== END 2016-06-24 12:47 | disposition home or self-care (01) ==
LOC: 3BNU 14:43 → EMEROO 14:43 → 3BNU 21:05
PROVIDERS: ADMIT Internal Medicine; ATTEND Nurse Practitioner Family

== ENCOUNTER 2022-04-13 11:49 | Inpatient (IN) ==
[2022-04-13] MEDS ORDERED: Pantoprazole 40 MG VIAL IVP ONE (14:42)
[2022-04-13 15:36] LABS: Basophils % 0.5 %; Eosinophils % 0.5 %; Hematocrit 15.2 % (37.5-50.1); Immature Granulocytes % 0.5 % (0-4); Lymphocytes # 0.6 K/mcL (0.6-4.6); Lymphocytes % 10.5 %; Mean Corpuscular HGB Conc 26.3 g/dL (31.6-35.5); Mean Corpuscular Hemoglobin 20.8 pg (28.0-33.3); Mean Corpuscular Volume 79.2 fL (83.0-100.0); Mean Platelet Volume 11.9 fL (9.4-12.4); Monocytes # 1.2 K/mcL (0.0-1.3); Monocytes % 20.7 %; Neutrophils # 3.9 K/mcL (1.6-8.9); Platelet Count 112 K/mcL (140-400); Red Blood Count 1.92 M/mcL (4.19-5.50); Red Cell Distribution Width 18.2 % (11.5-14.5); Segmented Neutrophils % 67.3 %; White Blood Count 5.8 K/mcL (4.3-11.1)
[2022-04-13 15:38] LABS: Alanine Aminotransferase 16 Units/L (7-52); Albumin 2.8 g/dL (3.5-5.7); Alkaline Phosphatase 103 Units/L (34-104); Aspartate Amino Transferase 23 Units/L (13-39); BUN/Creatinine Ratio 12 (6-26); Bilirubin,Direct 0.8 mg/dL (0.0-0.2); Bilirubin,Indirect 1.7 mg/dL (0.0-1.0); Bilirubin,Total 2.5 mg/dL (0.3-1.0); Blood Urea Nitrogen 15 mg/dL (8-23); Calcium 8.5 mg/dL (8.6-10.3); Carbon Dioxide 16 mEq/L (23-29); Chloride 111 mEq/L (98-107); Globulin 2.9 g/dL (2.4-3.5); Glucose 121 mg/dL (70-105); INR 1.6; Osmolality,Calculated 284 (280-300); Potassium 3.6 mEq/L (3.5-5.1); Prothrombin Time 17.4 Seconds (9.4-12.1); Sodium 136 mEq/L (136-145); Total Protein 5.7 g/dL (6.4-8.9); Troponin I < 0.03 ng/mL (< 0.04)
[2022-04-13 15:40] LABS: Activated Partial Thrombo Time 30.1 Seconds (26.0-36.0)
[2022-04-13 16:23] LABS: Anisocytosis 1+ (Not Present); Hypochromasia Present (Not Present); Platelet Estimate Decreased (Normal); Rouleaux Present (Not Present)
[2022-04-13] MEDS ORDERED: 0.9 % Sodium Chloride 250 ML ONE ×2 (16:27→19:23)
[2022-04-13] MEDS ORDERED: Melatonin 3 MG TABLET PO PRN (17:08)
[2022-04-13] MEDS ORDERED: Ondansetron ODT 4 MG TAB.RAPDIS SL PRN (17:08)
[2022-04-13] MEDS ORDERED: MOM Conc 10 ML UD.LIQ PO PRN (17:08)
[2022-04-13] MEDS ORDERED: Naloxone 0.4 MG/ML INJ IVP PRN (17:08)
[2022-04-13] MEDS ORDERED: Mag Hydrox/Al Hydrox/Simeth 30 ML UDC PO PRN (17:08)
[2022-04-13] MEDS: Pantoprazole 40 MG VIAL IVP SCH (19:47)
[2022-04-13] MEDS ORDERED: 0.9 % Sodium Chloride 500 ML ONE (22:07)
[2022-04-14] MEDS: Pantoprazole 40 MG VIAL IVP SCH ×2 (05:06→18:13)
[2022-04-14 05:07] LABS: Immature Granulocytes % 0.9 % (0-4); Red Cell Distribution Width 17.3 % (11.5-14.5)
[2022-04-14 05:09] LABS: Basophils % 0.9 %; Eosinophils # 0.3 K/mcL (0.0-0.6); Eosinophils % 5.7 %; Hematocrit 21.3 % (37.5-50.1); Hemoglobin 6.1 g/dL (12.9-16.9); Immature Platelets 6.9 % (1.1-6.1); Lymphocytes # 0.8 K/mcL (0.6-4.6); Lymphocytes % 17.7 %; Mean Corpuscular HGB Conc 28.6 g/dL (31.6-35.5); Mean Corpuscular Hemoglobin 23.6 pg (28.0-33.3); Mean Corpuscular Volume 82.6 fL (83.0-100.0); Mean Platelet Volume 11.7 fL (9.4-12.4); Monocytes % 23.4 %; Red Blood Count 2.58 M/mcL (4.19-5.50); Segmented Neutrophils % 51.4 %; White Blood Count 4.4 K/mcL (4.3-11.1)
[2022-04-14 05:22] LABS: Calcium 8.4 mg/dL (8.6-10.3); Potassium 3.4 mEq/L (3.5-5.1)
[2022-04-14 06:01] LABS: Neutrophils # 2.3 K/mcL (1.6-8.9); Platelet Count 76 K/mcL (140-400)
[2022-04-14 06:02] LABS: Anisocytosis 1+ (Not Present); Platelet Estimate Decreased (Normal)
[2022-04-14 06:04] LABS: Burr Cells 1+ (Not Present); Hypochromasia Present (Not Present); Poikilocytosis 1+ (Not Present)
[2022-04-14 14:29] LABS: % Iron Saturation 29 % (20-55); Ferritin 14 ng/mL (20-250); Iron 94 mcg/dL (65-175); Transferrin 235 mg/dL (203-362)
[2022-04-14] MEDS ORDERED: SODIUM CHLORIDE/NAHCO3/KCL/PEG 4,000 ML SOLN.RECON PO ONE (17:00)
[2022-04-14] MEDS ORDERED: 0.9 % Sodium Chloride 250 ML IVC SCH (17:15)
[2022-04-14] MEDS ORDERED: 0.9 % Sodium Chloride 250 ML ONE (18:51)
[2022-04-15 04:28] LABS: Red Cell Distribution Width 16.9 % (11.5-14.5)
[2022-04-15 04:30] LABS: Immature Platelets 6.1 % (1.1-6.1)
[2022-04-15 04:35] LABS: Basophils % 0.4 %; Eosinophils # 0.3 K/mcL (0.0-0.6); Eosinophils % 5.5 %; Hematocrit 23.9 % (37.5-50.1); Hemoglobin 7.4 g/dL (12.9-16.9); Immature Granulocytes % 1.1 % (0-4); Lymphocytes # 0.9 K/mcL (0.6-4.6); Lymphocytes % 18.6 %; Mean Corpuscular Hemoglobin 25.3 pg (28.0-33.3); Mean Corpuscular Volume 81.6 fL (83.0-100.0); Mean Platelet Volume 11.7 fL (9.4-12.4); Monocytes # 0.9 K/mcL (0.0-1.3); Monocytes % 20.4 %; Neutrophils # 2.5 K/mcL (1.6-8.9); Red Blood Count 2.93 M/mcL (4.19-5.50); White Blood Count 4.6 K/mcL (4.3-11.1)
[2022-04-15 04:50] LABS: Calcium 7.9 mg/dL (8.6-10.3); Potassium 3.5 mEq/L (3.5-5.1)
[2022-04-15 05:01] LABS: Platelet Count 82 K/mcL (140-400)
[2022-04-15 05:03] LABS: Platelet Estimate Decreased (Normal)
[2022-04-15 05:04] LABS: Hypochromasia Present (Not Present)
[2022-04-15] MEDS ORDERED: Lidocaine -MPF 2% 2 ML VIAL ONE (08:34)
[2022-04-15] MEDS ORDERED: *HR* Succinylcholine 200 MG/10 ML VIAL IVP ONE (08:34)
[2022-04-15] MEDS ORDERED: *HR* Propofol 200 MG/20 ML VIAL IVP ONE (08:34)
[2022-04-15] MEDS ORDERED: Lidocaine HCL 4 ML Topical Solution (Laryng-O-Jet Kit Sterile Pak) TP ONE (08:47)
[2022-04-15] MEDS ORDERED: Simethicone 40 MG/0.6 ML MLS ONE (10:35)
[2022-04-15] MEDS ORDERED: Simethicone 40 MG/0.6 ML MLS IR ONE (10:36)
[2022-04-15] MEDS: Pantoprazole 40 MG VIAL IVP SCH ×2 (12:12→16:35)
[2022-04-16 07:21] LABS: Potassium 3.7 mEq/L (3.5-5.1)
[2022-04-16] MEDS: Pantoprazole 40 MG VIAL IVP SCH (07:33)
[2022-04-16 11:15] VITALS: PULSE 99; O2SAT 97
[2022-04-16 13:15] LABS: Mean Corpuscular Volume 83.7 fL (83.0-100.0)
[2022-04-16 13:17] LABS: Hematocrit 25.2 % (37.5-50.1); Hemoglobin 7.6 g/dL (12.9-16.9); Mean Corpuscular HGB Conc 30.2 g/dL (31.6-35.5); Mean Corpuscular Hemoglobin 25.2 pg (28.0-33.3); Red Blood Count 3.01 M/mcL (4.19-5.50); Red Cell Distribution Width 17.4 % (11.5-14.5); White Blood Count 4.6 K/mcL (4.3-11.1)
[2022-04-16 17:28] VITALS: BP 111/67; TEMP 98
== END 2022-04-16 18:04 | disposition home health service (06) | DRG 378 ==
LOC: EMEROOARM 11:49 → 2NENU 11:49
PROVIDERS: ADMIT Internal Medicine; ATTEND Internal Medicine